=== PATIENT | male | born 2000 | race Hispanic/Latino ===

== ENCOUNTER 2023-02-27 11:12 | Emergency (ER) | payer OTHER ==
[~2023-02-27] VITALS: Ht 172.7 cm; Wt 72.6 kg
[2023-02-27 11:34] VITALS: BP 109/72; PULSE 85; RESP 20
[2023-02-27] MEDS ORDERED: IBUP-2070 PO (13:38)
== END 2023-02-27 14:00 | disposition home or self-care (01) ==
LOC: EDH 11:12
DX: D17.0 Benign lipomatous neoplasm of skin and subcutaneous tissue of head, face and neck (principal)
CPT/HCPCS: 99282